=== PATIENT | male | born 1970 | race Caucasian/White ===

== ENCOUNTER 2021-08-20 00:37 | Emergency (ER) | payer MEDICAID ==
[~2021-08-20] VITALS: Ht 170.2 cm; Wt 127.0 kg
[2021-08-20 00:45] VITALS: BP_SYST 162
--- NOTE | 2021-08-20 01:48 | NUR ---
Patient to ER bed 6 to gown for evaluation. Side rails up. Report given to MINAL BAILON.
--- NOTE | 2021-08-20 01:50 | NUR ---
Patient BIB by family from home. C/O right foot pain x 2 months, Patient reported, had right foot pain and wound for 2 months, his wound were healing, concerns wound open again and pain. Hx DM.
--- NOTE | 2021-08-20 02:06 | NUR ---
ER at bedside examining patient.
[2021-08-20] MEDS ORDERED: fentaNYL CITRATE/PF 100 MCG/2 ML AMP IM ONE (02:30)
[2021-08-20] MEDS ORDERED: fentaNYL CITRATE/PF 100 MCG/2 ML AMP ONE (02:55)
--- NOTE | 2021-08-20 02:57 | NUR ---
Ultrasound at bedside.
--- NOTE | 2021-08-20 03:25 | NUR ---
Blood for labwork drawn from virtual assistant [employer]. Patient tolerated well.
[2021-08-20 03:35] LABS: BASOPHILS % (AUTO) 0.5 % (0.0-2.0); EOSINOPHILS # (AUTO) 0.3 K/uL (0.0-0.4); EOSINOPHILS % (AUTO) 4.5 % (0.0-4.0); HEMATOCRIT 39.6 % (36-54); HEMOGLOBIN 13.5 g/dL (14.0-18.0); LYMPHOCYTES % (AUTO) 25.8 % (20.5-51.5); MEAN CORPUSCULAR HEMOGLOBIN 33 pg (27-31); MEAN CORPUSCULAR HGB CONC 34 % (32-36); MEAN CORPUSCULAR VOLUME 97 fL (79.0-98.0); MONOCYTES # (AUTO) 0.9 K/uL (0.0-1.0); MONOCYTES % (AUTO) 11.5 % (1.7-9.3); NEUTROPHILS # (AUTO) 4.4 K/uL (1.8-7.7); NEUTROPHILS % (AUTO) 57.7 % (40.0-70.0); PLATELET COUNT (AUTO) 205 K/uL (130-430); RED CELL DISTRIBUTION WIDTH 14.5 % (9.0-15.0); WHITE BLOOD COUNT (AUTO) 7.7 K/uL (4.8-10.8)
[2021-08-20 03:49] LABS: CALCIUM 7.9 mg/dL (8.4-11.0); CREATININE 1.02 mg/dL (0.55-1.30); POTASSIUM 4.4 mmol/L (3.5-5.1)
[2021-08-20 03:54] LABS: ALBUMIN 3.4 g/dL (3.4-4.8); C-REACTIVE PROTEIN QUANT 1.5 mg/dL (0-0.5); TOTAL BILIRUBIN 0.4 mg/dL (0.0-1.0)
[2021-08-20 04:20] LABS: ERYTHROCYTE SEDIMENTATION RATE 28 MM/HR (0-15)
--- NOTE | 2021-08-20 05:25 | NUR ---
Dr. Salazar at bedside to explain results, and treatment plans.
[2021-08-20] MEDS ORDERED: SULF1TAB48 PO (05:42)
[2021-08-20] MEDS ORDERED: BACITRACIN 1 GM OINT TP ONE (05:43)
[2021-08-20 05:48] VITALS: BP_SYST 155
--- NOTE | 2021-08-20 05:48 | NUR ---
Patient given written and verbal discharge instructions and verbalizes understanding. ER MD discussed with patient the results and treatment provided. Patient in stable condition. ID arm band removed. Rx of Bactrim given. Patient educated on pain management and to follow up with PMD. Pain Scale 1/10. Opportunity for questions provided and answered. Medication side effect fact sheet provided.
== END 2021-08-20 05:48 | disposition home or self-care (01) ==
LOC: SED 00:37
DX: L97.319 Non-pressure chronic ulcer of right ankle with unspecified severity (principal)
CPT/HCPCS: 36415; 73590; 73610; 80053; 85025; 85651; 86140; 93971; 96372; 99285; J3010